=== PATIENT | female | born 1995 | race Caucasian/White ===

== ENCOUNTER → 2018-12-14 | Outpatient (REF) | payer OTHER ==
[~2018-12-14] MED LIST: TAZO0.052 EX; VITA250T PO
[2018-12-14 19:14] LABS: CHOLESTEROL LEVEL 174 MG/DL (<200); HDL CHOLESTEROL 24 MG/DL (>40); NON-HDL-C 150 MG/DL; TRIGLYCERIDES LEVEL 1022 MG/DL (<150)
== END ==
LOC: M LABDRWCV 16:44
PROVIDERS: ATTEND Nurse Practitioner Family
DX: E78.00 Pure hypercholesterolemia, unspecified (principal)

== ENCOUNTER → 2019-03-15 | Outpatient (REF) | payer OTHER ==
[2019-03-15 16:38] LABS: HEMATOCRIT 36.2 % (36.0-47.0); HEMOGLOBIN 11.9 g/dl (12.0-15.5); MEAN CORPUSCULAR HEMOGLOBIN 29.2 pg (27.0-33.0); MEAN CORPUSCULAR HGB CONC 32.9 g/dl (32.0-36.5); MEAN CORPUSCULAR VOLUME 88.7 fl (80.0-96.0); PLATELET COUNT, AUTOMATED 403 10^3/uL (150-450); RED BLOOD COUNT 4.08 10^6/uL (4.00-5.40); WHITE BLOOD COUNT 10.6 10^3/uL (4.0-10.0)
[2019-03-15 16:56] LABS: ALBUMIN 3.4 GM/DL (3.2-5.2); ALT/SGPT 24 U/L (12-78); BILIRUBIN,TOTAL 0.3 MG/DL (0.2-1.0); BLOOD UREA NITROGEN 11 MG/DL (7-18); CALCIUM LEVEL 9.5 MG/DL (8.5-10.1); CARBON DIOXIDE LEVEL 25 MEQ/L (21-32); CHLORIDE LEVEL 106 MEQ/L (98-107); CHOLESTEROL LEVEL 168 MG/DL (<200); CHOLESTEROL RISK RATIO 4.307 (<5); GLOMERULAR FILTRATION RATE > 60.0 (>60); GLUCOSE, FASTING 82 MG/DL (70-100); HDL CHOLESTEROL 39 MG/DL (>40); LDL CHOLESTEROL 81 MG/DL (<100); NON-HDL-C 129 MG/DL; POTASSIUM SERUM 4.2 MEQ/L (3.5-5.1); SODIUM LEVEL 140 MEQ/L (136-145); TOTAL 25(OH) VITAMIN D 27.6 NG/ML (30.0-100.0); TOTAL PROTEIN 7.1 GM/DL (6.4-8.2); TRIGLYCERIDES LEVEL 238 MG/DL (<150)
== END ==
LOC: M SFHCCAPE 07:19
PROVIDERS: ATTEND Nurse Practitioner Family
DX: F32.9 Major depressive disorder, single episode, unspecified (principal); E78.1 Pure hyperglyceridemia

== ENCOUNTER → 2019-07-28 | Outpatient (CLI) | payer BC, OTHER | LOC: M LAB 16:50 | PROVIDERS: ATTEND Obstetrics & Gynecology | DX: O20.9 Hemorrhage in early pregnancy, unspecified (principal); Z3A.00 Weeks of gestation of pregnancy not specified ==

== ENCOUNTER → 2019-08-01 | Outpatient (REF) | payer OTHER | LOC: M PLALAB 07:19 → M LABDRWCV 07:19 | PROVIDERS: ATTEND Advanced Practice Midwife | DX: O20.0 Threatened abortion (principal); Z3A.00 Weeks of gestation of pregnancy not specified ==

== ENCOUNTER → 2019-08-02 | Outpatient (CLI) | payer BC ==
--- NOTE | 2019-08-03 02:39 | REP ---
Clinical: Dating and viability. Technique: Transabdominal first trimester obstetrical ultrasound with color Doppler evaluation. Findings: Ultrasound examination demonstrates single live early intrauterine . Gestational sac with yolk sac and pole identified. CRL of 5 mm corresponds to 6 weeks 1 day gestational age with estimated date of delivery 03/26/2020. heart rate could not be obtained, but video clip demonstrates faint heartbeat. Impression: 1. pole measuring 6 weeks 1 day gestational age. 2. Heartbeat cannot be obtained, but cardiac activity identified on live imaging. Threatened cannot be excluded. Follow-up examination may be warranted.
== END ==
LOC: M WHC 13:04
PROVIDERS: ATTEND Advanced Practice Midwife
DX: O20.0 Threatened abortion (principal)

== ENCOUNTER → 2019-08-09 | Outpatient (CLI) | payer BC, OTHER ==
--- NOTE | 2019-08-10 02:46 | REP ---
Clinical: Dating and viability. Comparison: 08/02/2019. Technique: Transabdominal and transvaginal first trimester obstetrical ultrasound with color Doppler evaluation. Findings: Current examination demonstrates a single intrauterine measuring at 6 weeks 3 days gestational age. No heartbeat is obtainable. Right maternal ovary includes corpus luteum. Impression: Intrauterine demonstrating less than expected growth as compared to prior examination and no evidence for cardiac activity. Correlation with serial HCG levels is recommended. Differential diagnosis includes early and spontaneous in progress.
== END ==
LOC: M WHC 14:19
PROVIDERS: ATTEND Advanced Practice Midwife
DX: O20.0 Threatened abortion (principal); Z3A.00 Weeks of gestation of pregnancy not specified

== ENCOUNTER → 2019-08-14 | Outpatient (REF) | payer OTHER | LOC: M PLALAB 14:21 | PROVIDERS: ATTEND Advanced Practice Midwife | DX: O02.1 Missed abortion (principal) ==

== ENCOUNTER → 2019-08-28 | Outpatient (REF) | payer OTHER ==
[2019-08-28 16:46] LABS: FREE T4 1.04 NG/DL (0.76-1.46); THYROID STIMULATING HORMONE 3.21 uIU/ML (0.358-3.740)
== END ==
LOC: M LABDRWCV 16:03
PROVIDERS: ATTEND Advanced Practice Midwife
DX: O02.1 Missed abortion (principal)

== ENCOUNTER → 2019-09-04 | Outpatient (CLI) | payer OTHER | LOC: M PLALAB 08:27 | PROVIDERS: ATTEND Advanced Practice Midwife | DX: O02.1 Missed abortion (principal) ==

== ENCOUNTER → 2019-09-14 | Outpatient (REF) | payer OTHER | LOC: M SFHCCAPE 10:44 | PROVIDERS: ATTEND Advanced Practice Midwife | DX: O02.1 Missed abortion (principal) ==

== ENCOUNTER → 2019-11-16 | Outpatient (REF) | payer OTHER | LOC: M PLALAB 15:01 | PROVIDERS: ATTEND Obstetrics & Gynecology | DX: O36.80X0 Pregnancy with inconclusive fetal viability, not applicable or unspecified (principal) ==

== ENCOUNTER → 2020-01-24 | Outpatient (REF) | payer OTHER ==
[2020-01-24 11:40] LABS: CHOLESTEROL RISK RATIO 5.772 (<5); THYROID STIMULATING HORMONE 4.14 uIU/ML (0.358-3.740)
== END ==
LOC: M SFHCCLAY 07:16
PROVIDERS: ATTEND Nurse Practitioner Family
DX: E78.1 Pure hyperglyceridemia (principal); R79.89 Other specified abnormal findings of blood chemistry

== ENCOUNTER → 2020-03-18 | Outpatient (CLI) | payer OTHER ==
[2020-03-18 18:23] LABS: FREE T4 1.05 NG/DL (0.76-1.46); THYROID STIMULATING HORMONE 1.75 uIU/ML (0.358-3.740)
== END ==
LOC: M PLALAB 15:56
PROVIDERS: ATTEND Advanced Practice Midwife
DX: E03.9 Hypothyroidism, unspecified (principal)

== ENCOUNTER → 2020-07-05 | Outpatient (REF) | payer OTHER ==
[2020-07-05 12:21] LABS: CHOLESTEROL RISK RATIO 5.258 (<5); THYROID STIMULATING HORMONE 2.91 uIU/ML (0.358-3.740)
== END ==
LOC: M SFHCCLAY 07:09
PROVIDERS: ATTEND Nurse Practitioner Family
DX: E78.1 Pure hyperglyceridemia (principal); E03.9 Hypothyroidism, unspecified

== ENCOUNTER → 2020-10-03 | Outpatient (REF) | payer OTHER ==
[2020-10-04 11:37] LABS: BASO # 0.1 10^3/uL (0.0-0.2); BASO % 0.4 % (0.0-1.0); EOS # 0.2 10^3/uL (0.0-0.5); EOS % 1.7 % (0.0-3.0); HEMATOCRIT 42.4 % (36.0-47.0); LYMPH # 2.5 10^3/uL (1.5-5.0); MEAN CORPUSCULAR HEMOGLOBIN 30.1 pg (27.0-33.0); MEAN CORPUSCULAR VOLUME 91.2 fl (80.0-96.0); MONO # 0.7 10^3/uL (0.0-0.8); MONO % 5.7 % (2.0-8.0); NEUTROPHILS # 8.4 10^3/uL (1.5-8.5); NEUTROPHILS % 70.9 % (36.0-66.0); PLATELET COUNT, AUTOMATED 435 10^3/uL (150-450); RED BLOOD COUNT 4.65 10^6/uL (4.00-5.40); WHITE BLOOD COUNT 11.9 10^3/uL (4.0-10.0)
[2020-10-04 11:54] LABS: HEMOGLOBIN A1c 5.1 %
[2020-10-04 12:28] LABS: ALBUMIN 4.5 GM/DL (3.2-5.2); ALT/SGPT 40 U/L (12-78); BILIRUBIN,TOTAL 0.3 MG/DL (0.2-1.0); BLOOD UREA NITROGEN 12 MG/DL (7-18); CALCIUM LEVEL 9.9 MG/DL (8.5-10.1); CARBON DIOXIDE LEVEL 30 MEQ/L (21-32); CHLORIDE LEVEL 103 MEQ/L (98-107); CREATININE FOR GFR 0.73 MG/DL (0.55-1.30); ESTRADIOL 303.6 PG/ML; FOLLICLE STIMULATING HORMONE 12.6 mIU/mL; FREE T4 0.97 NG/DL (0.76-1.46); GLOMERULAR FILTRATION RATE > 60.0 (>60); GLUCOSE, FASTING 75 MG/DL (70-100); LUTEINIZING HORMONE 36.6 mIU/mL; POTASSIUM SERUM 4.8 MEQ/L (3.5-5.1); SODIUM LEVEL 137 MEQ/L (136-145); TESTOSTERONE 47 NG/DL (14-76); TOTAL PROTEIN 8.1 GM/DL (6.4-8.2)
[2020-10-04 12:32] LABS: HEPATITIS B SURFACE ANTIGEN NEGATIVE (NEGATIVE)
[2020-10-04 12:59] LABS: HEPATITIS C VIRUS ABY INDEX < 0.0 INDEX (<0.8)
[2020-10-04 13:00] LABS: HIV 1&2 SCREEN CENTAUR NEGATIVE (NEGATIVE)
== END ==
LOC: M SFHCCLAY 14:52
PROVIDERS: ATTEND Nurse Practitioner Family
DX: N97.9 Female infertility, unspecified (principal); F32.9 Major depressive disorder, single episode, unspecified; F41.9 Anxiety disorder, unspecified; E78.1 Pure hyperglyceridemia; E03.9 Hypothyroidism, unspecified

== ENCOUNTER → 2020-11-22 | Outpatient (CLI) | payer BC, OTHER ==
--- NOTE | 2020-11-22 08:37 | REP ---
INDICATION: OVARIAN DYSFUNCTION. COMPARISON: Comparison study is from 02 October 2013.. TECHNIQUE: Transvaginal pelvic sonography. FINDINGS: Uterine dimensions are 8.0 x 3.1 x 3.8 cm. Endometrial stripe is 2.3 cm in thickness. No focal uterine mass is seen. No free fluid is noted. The dimensions of the right ovary today are 2.0 x 1.5 x 1.7 cm. There are no follicles greater than a cm in the right ovary. Five follicles are seen in the right ovary ranging in size from 0.2-0.8 cm. The left ovary is dimensions are 2.4 x 1.4 x 2.0 cm. There are no follicles in the left ovary measuring more than a cm. Eleven follicles are seen in the left ovary ranging in size from 0.2-0.7 cm. IMPRESSION: Normal pelvic sonography. Ovarian follicle description as above. <Electronically signed by Tyshawn Aguilar > 11/22/20 [id number]
[2020-11-22 10:54] LABS: HCG, SERUM QUANTITATIVE < 1.0 MIU/ML
[2020-11-22 13:24] LABS: ESTRADIOL 29.5 PG/ML; LUTEINIZING HORMONE 2.5 mIU/mL; PROGESTERONE 0.62 NG/ML
[2020-11-22 13:25] LABS: FOLLICLE STIMULATING HORMONE 5.3 mIU/mL
== END ==
LOC: M RAD 07:53
PROVIDERS: ATTEND Obstetrics & Gynecology Reproductive Endocrinology
DX: N97.9 Female infertility, unspecified (principal)

== ENCOUNTER → 2020-12-19 | Outpatient (CLI) | payer BC, OTHER ==
--- NOTE | 2020-12-19 09:46 | REP ---
INDICATION: EVALUATE FOLLICLES - LABS FIRST COMPARISON: 11/22/2020 TECHNIQUE: Transvaginal ultrasound examination. FINDINGS: Normal anteverted uterus measures 6.7 x 2.7 x 4.3 cm. The endometrial complex measures 4 mm thickness. No pelvic free fluid. Right ovary measures 2.5 x 1.7 x 1.6 cm and includes 12 x 9 mm, 6 x 4 mm, 11 x 9 mm, 5 x 5 mm, 5 x 4 mm, 7 x 8 mm, 6 x 11 mm, 6 x 8 mm, and 5 x 4 mm follicles. Left ovary measures 2.9 x 2.5 x 2.2 cm and includes 9 x 6 mm, 10 x 9 mm, 11 x 11 mm, 4 x 6 mm, and 16 x 14 mm follicles. IMPRESSION: Bilateral ovarian follicles as described above. <Electronically signed by Александр Velasquez > 12/19/20 [id number]
[2020-12-19 09:55] LABS: HCG, SERUM QUANTITATIVE < 1.0 MIU/ML
[2020-12-19 10:33] LABS: ESTRADIOL 71.4 PG/ML; LUTEINIZING HORMONE 4.7 mIU/mL; PROGESTERONE 0.51 NG/ML
== END ==
LOC: M RAD 08:51
PROVIDERS: ATTEND Obstetrics & Gynecology Reproductive Endocrinology
DX: E28.9 Ovarian dysfunction, unspecified (principal)

== ENCOUNTER → 2020-12-25 | Outpatient (CLI) | payer BC, OTHER ==
--- NOTE | 2020-12-25 10:08 | REP ---
INDICATION: INFERTILITY COMPARISON: 12/19/2020 TECHNIQUE: Transvaginal pelvic ultrasound. FINDINGS: Anteverted uterus measures 8.6 x 3.1 x 3.7 cm. Endometrial complex measures 7.6 mm thickness. Right ovary measures 1.8 x 1.5 x 1.5 cm with 6 subcentimeter follicles measuring between 2 and 5 mm. Left ovary measures 3.5 x 4.2 x 2.6 cm and includes 18 x 26 mm cyst with internal daughter cyst along with 3 subcentimeter follicles measuring between 2 and 5 mm. IMPRESSION: Limited examination due to excessive bowel gas in the pelvis. Few bilateral subcentimeter follicles noted. <Electronically signed by Александр Velasquez > 12/25/20 [id number]
[2020-12-25 10:29] LABS: HCG, SERUM QUANTITATIVE < 1.0 MIU/ML
[2020-12-25 11:19] LABS: PROGESTERONE 0.55 NG/ML
[2020-12-25 11:20] LABS: FOLLICLE STIMULATING HORMONE 6.9 mIU/mL; LUTEINIZING HORMONE 17.8 mIU/mL
== END ==
LOC: M RAD 09:20
PROVIDERS: ATTEND Obstetrics & Gynecology Reproductive Endocrinology
DX: E28.9 Ovarian dysfunction, unspecified (principal); N83.202 Unspecified ovarian cyst, left side; N85.4 Malposition of uterus

== ENCOUNTER → 2020-12-26 | Outpatient (CLI) | payer OTHER, BC ==
[2020-12-26 10:19] LABS: ESTRADIOL 150.1 PG/ML; LUTEINIZING HORMONE 46.9 mIU/mL; PROGESTERONE 1.87 NG/ML
== END ==
LOC: M WUC 08:13
PROVIDERS: ATTEND Obstetrics & Gynecology Reproductive Endocrinology
DX: E28.9 Ovarian dysfunction, unspecified (principal)

== ENCOUNTER → 2021-03-04 | Outpatient (REF) | payer OTHER, BC | LOC: M LAB REF 11:14 | PROVIDERS: ATTEND Physician Assistant Medical | DX: J02.9 Acute pharyngitis, unspecified (principal) ==

== ENCOUNTER → 2023-12-20 | Outpatient (REF) | payer BC ==
[2023-12-22 13:47] LABS: HPV APTIMA Not Detected (Not Detected)
== END ==
LOC: M SFHCCLAY 11:30
PROVIDERS: ATTEND Nurse Practitioner Family
DX: Z12.4 Encounter for screening for malignant neoplasm of cervix (principal)
CPT/HCPCS: 87624; G0123

== ENCOUNTER → 2024-06-07 | Outpatient (REF) | payer BC ==
[2024-06-07 17:35] LABS: FREE T4 1.09 NG/DL (0.89-1.76); THYROID STIMULATING HORMONE 2.206 uIU/ML (0.55-4.78)
[2024-06-07 17:36] LABS: TOTAL 25(OH) VITAMIN D 49.1 NG/ML (20.0-100.0)
== END ==
LOC: M SFHCCLAY 09:28
PROVIDERS: ATTEND Nurse Practitioner Family
DX: E03.9 Hypothyroidism, unspecified (principal); E55.9 Vitamin D deficiency, unspecified

== ENCOUNTER → 2024-09-01 | Outpatient (CLI) | payer BC | LOC: M WHC 13:15 | PROVIDERS: ATTEND Specialist | DX: R10.2 Pelvic and perineal pain (principal) ==

== ENCOUNTER → 2024-09-06 | Outpatient (REF) | payer BC | LOC: M SFHCCLAY 10:18 | PROVIDERS: ATTEND Specialist | DX: Z32.01 Encounter for pregnancy test, result positive (principal) ==

== ENCOUNTER → 2024-09-08 | Outpatient (REF) | payer BC | LOC: M PLALAB 10:15 | PROVIDERS: ATTEND Specialist | DX: Z32.01 Encounter for pregnancy test, result positive (principal) ==

== ENCOUNTER → 2024-09-19 | Outpatient (REF) | payer BC ==
[2024-09-19 18:50] LABS: HEMATOCRIT 40.9 % (36.0-47.0); HEMOGLOBIN 13.7 g/dl (12.0-15.5); MEAN CORPUSCULAR HEMOGLOBIN 29.6 pg (27.0-33.0); MEAN CORPUSCULAR HGB CONC 33.5 g/dl (32.0-36.5); MEAN CORPUSCULAR VOLUME 88.3 fl (80.0-96.0); PLATELET COUNT, AUTOMATED 394 10^3/uL (150-450); RED BLOOD COUNT 4.63 10^6/uL (4.00-5.40); WHITE BLOOD COUNT 11.7 10^3/uL (4.0-10.0)
[2024-09-19 19:41] LABS: HIV 1&2 SCREEN NEGATIVE (NEGATIVE)
[2024-09-19 21:11] LABS: Trichomonas vaginalis (AMP) NOT DETECTED (NEGATIVE)
[2024-09-19 21:35] LABS: GC DNA AMPLIFICATION NEGATIVE (NEGATIVE)
[2024-09-20 18:28] LABS: HEPATITIS C VIRUS ABY INDEX 0.02 INDEX (<0.8)
== END ==
LOC: M PLALAB 10:46
PROVIDERS: ATTEND Specialist
DX: Z34.01 Encounter for supervision of normal first pregnancy, first trimester (principal)

== ENCOUNTER → 2024-09-20 | Outpatient (REF) | payer BC | LOC: M PLALAB 12:52 | PROVIDERS: ATTEND Specialist | DX: Z34.91 Encounter for supervision of normal pregnancy, unspecified, first trimester (principal); R82.90 Unspecified abnormal findings in urine ==

== ENCOUNTER → 2024-10-16 | Outpatient (CLI) | payer BC | LOC: M PLALAB 14:30 | PROVIDERS: ATTEND Specialist | DX: Z34.81 Encounter for supervision of other normal pregnancy, first trimester (principal) ==

== ENCOUNTER → 2024-11-30 | Outpatient (CLI) | payer BC | LOC: M WHC 14:29 | PROVIDERS: ATTEND Specialist | DX: Z34.82 Encounter for supervision of other normal pregnancy, second trimester (principal) ==

== ENCOUNTER → 2025-02-20 | Outpatient (CLI) | payer BC ==
[~2025-02-20] MED LIST changes: +REGL10TA6 PO
== END ==
LOC: M WHC 14:57
PROVIDERS: ATTEND Specialist
DX: Z34.83 Encounter for supervision of other normal pregnancy, third trimester (principal); Z3A.30 30 weeks gestation of pregnancy

== ENCOUNTER → 2025-03-13 | Outpatient (REF) | payer BC | LOC: M SFHCWAGY 10:02 | PROVIDERS: ATTEND Specialist | DX: Z3A.35 35 weeks gestation of pregnancy (principal) ==

== ENCOUNTER → 2025-03-22 | Outpatient (CLI) | payer BC | LOC: M WHC 07:18 | PROVIDERS: ATTEND Specialist | DX: O36.5990 Maternal care for other known or suspected poor fetal growth, unspecified trimester, not applicable or unspecified (principal) ==

== ENCOUNTER 2025-04-20 16:44 | Inpatient (IN) | payer BC ==
[~2025-04-20] VITALS: Ht 162.6 cm; Wt 83.8 kg
[2025-04-20] VITALS (7 sets, daily range): BP systolic 108–132; BP diastolic 67–84; O2SAT 100
[2025-04-20] MEDS ORDERED: CITA40TA6 PO (17:13)
[2025-04-20] MEDS ORDERED: HOME MED LIST COMPLETE! XX SCH (17:15)
[2025-04-20] MEDS ORDERED: LIDOCAINE 1% MDV 20 ML VIAL INFIL PRN (17:35)
[2025-04-20] MEDS ORDERED: METHYLERGONOVINE MALEATE 0.2 MG/ML 1 ML VIAL IM PRN (17:35)
[2025-04-20] MEDS ORDERED: CARBOPROST TROMETHAMINE 250 MCG/ML AMP IM PRN (17:35)
[2025-04-20] MEDS ORDERED: TRANEXAMIC ACID INJection 1,000 MG in NS 100 ML IV PRN (17:35)
[2025-04-20] MEDS ORDERED: OXYTOCIN DRIP 30 UNITS in IV 1 EA IV PRN (17:35)
[2025-04-20 18:03] LABS: PLATELET COUNT, AUTOMATED 244 10^3/uL (150-450)
[2025-04-20] MEDS: miSOPROStol 50 MCG 1/2 TABLET PO SCH (18:05)
[2025-04-20 18:58] LABS: HIV 1&2 SCREEN NEGATIVE (NEGATIVE)
[2025-04-20 19:06] LABS: HEPATITIS C VIRUS ABY INDEX 0.02 INDEX (<0.8)
[2025-04-21] VITALS (41 sets, daily range): BP systolic 107–158; BP diastolic 61–92; O2SAT 98
[2025-04-21] MEDS: LACTATED RINGER'S 1000 ML IV STA (16:08)
[2025-04-21] MEDS ORDERED: LR 500 ML IV PRN (16:10)
[2025-04-21] MEDS ORDERED: diphenhydrAMINE 50 MG/ML VIAL IV PRN (16:10)
[2025-04-21] MEDS ORDERED: NALOXONE INJ 0.4 MG/1 ML VIAL IV PRN (16:10)
[2025-04-21] MEDS ORDERED: EPIDURAL/PCA KEYS XX PRN (16:10)
[2025-04-21] MEDS ORDERED: ONDANSETRON 4MG 2ML VIAL IV PRN (16:10)
[2025-04-21] MEDS: FENTANYL/ROPIVACAINE/NACL BAG 100 ML EPIDURAL SCH (16:45)
[2025-04-21] MEDS: LR 1,000 ML IV SCH (16:46)
[2025-04-21] MEDS: OXYTOCIN DRIP 30 UNITS in IV 1 EA IV SCH (18:00)
[2025-04-21] MEDS ORDERED: IBUPROFEN 600 MG TAB PO PRN (22:55)
[2025-04-21] MEDS ORDERED: RHOGAM 300MCG (1500IU) INJ IM SCH (22:55)
[2025-04-21] MEDS ORDERED: ACETAMINOPHEN 325 MG TAB PO PRN (22:55)
[2025-04-21] MEDS ORDERED: METHYLERGONOVINE MALEATE 0.2 MG TAB PO PRN (22:55)
[2025-04-21] MEDS: IBUPROFEN 800 MG TAB PO PRN (23:03)
[2025-04-22] MEDS: ACETAMINOPHEN 500 MG TAB PO PRN (04:24)
[2025-04-22] MEDS: DIBUCAINE 1% OINTMENT 30 GM TOP PRN (04:24)
[2025-04-22 06:00] VITALS: BP 134/84; O2SAT 100
[2025-04-22] MEDS: PRENATAL VITAMINS CHEWABLE TABLET PO SCH (09:12)
[2025-04-22 18:00] VITALS: BP 117/80; O2SAT 98
[2025-04-22] MEDS: DOCUSATE SODIUM 100 MG CAPSULE PO PRN (22:02)
[2025-04-23 05:53] VITALS: BP 122/75; O2SAT 99
[2025-04-23] MEDS ORDERED: MEASLES,MUMPS,RUBELLA VACCINE INJ (MMR-II) SC.IMMUN ONE (09:00)
[2025-04-23] MEDS ORDERED: ACET-683 PO (10:31)
[2025-04-23] MEDS ORDERED: IBUP80TA PO (10:31)
== END 2025-04-23 18:00 | disposition home or self-care (01) | DRG 560 ==
LOC: M LDI 16:44 → M OBS 04-21 23:08
PROVIDERS: ADMIT Advanced Practice Midwife; ATTEND Advanced Practice Midwife
PROC: 3E033VJ Introduction of Other Hormone into Peripheral Vein, Percutaneous Approach (ICD-10-PCS; 2025-04-20)
PROC: 10907ZC Drainage of Amniotic Fluid, Therapeutic from Products of Conception, Via Natural or Artificial Opening (ICD-10-PCS; 2025-04-20)
PROC: 3E0DXGC Introduction of Other Therapeutic Substance into Mouth and Pharynx, External Approach (ICD-10-PCS; 2025-04-20)
PROC: 10E0XZZ Delivery of Products of Conception, External Approach (ICD-10-PCS; principal; 2025-04-21)
PROC: 0KQM0ZZ Repair Perineum Muscle, Open Approach (ICD-10-PCS; 2025-04-21)
DX: O36.5990 Maternal care for other known or suspected poor fetal growth, unspecified trimester, not applicable or unspecified (principal); O70.1 Second degree perineal laceration during delivery; Z37.0 Single live birth; Z3A.39 39 weeks gestation of pregnancy

== ENCOUNTER → 2025-06-25 | Outpatient (REF) | payer BC ==
[~2025-06-25] MED LIST changes: +ACET-683 PO; +CITA40TA6 PO; +IBUP80TA PO
[2025-06-25 17:43] LABS: BASO # 0.1 10^3/uL (0.0-0.2); BASO % 0.6 % (0.0-1.0); EOS # 0.2 10^3/uL (0.0-0.5); EOS % 2.9 % (0.0-3.0); LYMPH # 2.9 10^3/uL (1.5-5.0); LYMPH % 37.6 % (24.0-44.0); MONO # 0.5 10^3/uL (0.0-0.8); MONO % 6.1 % (2.0-8.0); NEUTROPHILS # 4.1 10^3/uL (1.5-8.5); NEUTROPHILS % 52.5 % (36.0-66.0); PLATELET COUNT, AUTOMATED 365 10^3/uL (150-450)
[2025-06-25 17:53] LABS: FREE T4 1.06 NG/DL (0.89-1.76); TOTAL 25(OH) VITAMIN D 23.6 NG/ML (20.0-100.0)
[2025-06-25 17:57] LABS: ALT/SGPT 48 U/L (7.0-40); AST/SGOT 30 U/L (<34); CALCIUM LEVEL 9.5 MG/DL (8.5-10.1); CARBON DIOXIDE LEVEL 29 MMOL/L (20-31); CHLORIDE LEVEL 103 MMOL/L (98-107); CHOLESTEROL LEVEL 211 MG/DL (<200); CHOLESTEROL RISK RATIO 5.87 (<5); CREATININE FOR GFR 0.73 MG/DL (0.55-1.30); GLOMERULAR FILTRATION RATE > 90.0 (>60); LDL CHOLESTEROL 144.1 MG/DL (<100); NON-HDL-C 175.1 MG/DL; POTASSIUM SERUM 4.2 MMOL/L (3.5-5.1); SODIUM LEVEL 140 MMOL/L (136-145); TRIGLYCERIDES LEVEL 155 MG/DL (<150)
[2025-06-26 13:33] LABS: VITAMIN B12 LEVEL 547 PG/ML (211-911)
[2025-06-26 13:38] LABS: IRON (FE) 104 UG/DL (50-170)
[2025-06-26 13:50] LABS: PERCENT SATURATION 26.3 % (13.2-45.0)
[2025-06-26 13:53] LABS: ESTIMATED AVERAGE GLUCOSE 100.0 MG/DL (60-110)
== END ==
LOC: M SFHCCLAY 11:25
PROVIDERS: ATTEND Nurse Practitioner Family
DX: E03.9 Hypothyroidism, unspecified (principal); F32.9 Major depressive disorder, single episode, unspecified; F41.9 Anxiety disorder, unspecified; E78.1 Pure hyperglyceridemia; E55.9 Vitamin D deficiency, unspecified; D64.9 Anemia, unspecified; R73.01 Impaired fasting glucose